=== PATIENT | female | born 1970 | race Caucasian/White ===

== ENCOUNTER → 2018-08-17 11:35 | Outpatient (CLI) | payer SELFPAY ==
[2018-08-17 12:05] LABS: Hematocrit 41.5 % (36-46); Hemoglobin 13.7 g/dL (12.0-16.0); Mean Corpuscular Hemoglobin 31.5 PG (26-34); Mean Corpuscular Volume 95.5 fL (80-100); Platelet Count 309 X10^3/uL (150-400); Red Blood Cell Count 4.35 X10^6/uL (4.0-5.2); Red Cell Distribution Width 12.8 % (11.6-14.8); White Blood Cell Count 4.9 X10^3/uL (4.5-11.0)
[2018-08-17 12:13] LABS: Neutrophils Absolute Manual 2842 /uL (3000-5900); RBC Morphology Normal Morphology; Total Cells Counted 100
[2018-08-17 12:16] LABS: Alanine Aminotransferase 35 IU/L (9-52); Albumin 4.4 g/dL (3.5-5.0); Albumin Globulin Ratio 1.6 (1.0-2.8); Alkaline Phosphatase 53 U/L (38-126); Aspartate Aminotransferase 43 IU/L (14-36); BUN Creatinine Ratio 21.7 (6-22); Bilirubin Total 0.5 mg/dL (0.2-1.3); Blood Urea Nitrogen 13 mg/dL (7-17); Calcium 9.4 mg/dL (8.4-10.2); Carbon Dioxide 30 mmol/L (22-32); Chloride 97 mmol/L (98-107); Cholesterol 274 mg/dL (140-199); Estimated Glomerular Filt Rate > 60.0 mL/min (>60); Globulin 2.8 g/dL (1.7-4.1); Glucose 89 mg/dL (70-100); HEMOLYSIS < 15 (0-50); Potassium 4.1 mmol/L (3.4-5.1); Sodium 136 mmol/L (137-145); Total Protein 7.2 g/dL (6.3-8.2); Triglycerides 65 mg/dL (35-150)
[2018-08-17 12:27] LABS: HDL Cholesterol 174 mg/dL (40-60); LDL Cholesterol Calculated 87 mg/dL (<100)
== END ==
PROVIDERS: PCP Family Medicine; Visit Provider Family Medicine
DX: F32.9 Major depressive disorder, single episode, unspecified (principal); F50.2 Bulimia nervosa
CPT/HCPCS: 36415; 80053; 80061; 85025

== ENCOUNTER 2022-06-07 02:34 | Emergency (ER) | payer OTHER, MEDICAID, SELFPAY ==
[2022-06-07 02:43] VITALS: BP 126/67; PULSE 90; RESP 18; TEMP 36.8; O2SAT 98
--- NOTE | 2022-06-07 03:11 | ED_ITS ---
HPI - Nausea/Vomiting/Diarrhea General Chief complaint: Nausea/Vomiting/Diarrhea Stated complaint: think she has the flu or having a heart attack Time Seen by Provider: 06/07/22 02:50 Source: patient Mode of arrival: Ambulatory History of Present Illness HPI Narrative: Patient is a 51-year-old female with no past medical history presenting today with bright of complaints. Her boyfriend was sick yesterday she was feeling okay she went to sleep and woke up and felt all over body pain possibly a fever but she is afebrile now. She maybe had some heart palpitations as well but no real chest pain. She certainly denies any radiation. No provocation or palliation. She is not having any shortness of breath. She has chronic ongoing back pain for which she has lidocaine patches for this is not seem to be any worse or different today. No numbness tingling or weakness. She was just generally concerned. Related Data Home Medications Medication Instructions Recorded Confirmed multivitamin (Multiple Vitamins 1 tab PO QDAY ##0 11/10/16 03/28/18 tablet) [OMEGA-3/6/9 FISH OIL] PO QDAY ##0 06/15/17 03/28/18 Previous Rx's Medication Instructions Recorded venlafaxine 75 mg capsule,extended 75 mg PO BID #60 caps 05/16/18 release 24 hr Allergies Allergy/AdvReac Type Severity Reaction Status Date / Time citalopram [From CELEXA] AdvReac Intermediate VERTIGO, Verified 03/28/18 16:32 DIZZY SPELLS, NAUSEA, FEEL LIKE FAINTING Review of Systems Review of Systems Narrative: GENERAL: Denies chills, fatigue, malaise, fever, sweats, travel HEENT: Denies sinus pain, ear pain, sore throat, difficulty swallowing, neck pain RESPIRATORY: Denies dyspnea, cough, wheezing, hemoptysis, sputum. CARDIOVASCULAR: See HPI GASTROINTESTINAL: Denies nausea, vomiting, abdominal pain, diarrhea, constipation, melena. : Denies dysuria, frequency, incontinence, hematuria, urinary retention, flank pain. MUSCULOSKELETAL: Denies weakness, joint pain, or bony pain SKIN: No rash, no erythema, no pruritus NEUROLOGIC: Denies weakness, dizziness, headache, numbness, change in speech, c onfusion PSYCHIATRIC: No concerning psychosocial issues. 12 point review of systems is negative except for those stated above and HPI Patient History Medical History (Updated 06/07/22 @ 04:53 by Debra León DO) Anemia Bulimia Chickenpox Depression Foot pain Fractures Generalized headaches Hyperlipemia Migraines Sinusitis Surgical History No history of previous surgery Family History (Updated 11/10/16 @ 00:00 by Conversion Provider) Brother Age: 52 Hypertension Father Age: 82 Type 2 diabetes mellitus without complications Heart disease Hypertension Mother Age: 80 Type 2 diabetes mellitus without complications Social History Smoking Status: Current some day smoker Tobacco: How many years used: 15 alcohol intake: current (daily) Smoking Status: Current some day smoker alcohol intake frequency: 0-2 drinks per day Alcohol type: beer and hard liquor Substance Use Type: does not use Exam Initial Vital Signs Initial Vital Signs: Vital Signs Temperature 98.2 F 06/07/22 02:43 Pulse Rate 90 06/07/22 02:43 Respiratory Rate 18 06/07/22 02:43 Blood Pressure 126/67 06/07/22 02:43 Pulse Oximetry 98 06/07/22 02:43 Oxygen Delivery Method 06/07/22 02:43 GENERAL: Alert 51-year-old female and in no acute distress. HEENT: Head atraumatic,EOMI, pupils reactive, face symmetric, moist mucous membranes CARDIOVASCULAR: Regular rate and rhythm without murmurs, rubs or gallops. RESPIRATORY: Breath sounds equal bilaterally, no wheezes rales or rhonchi. ABDOMEN: Soft, nontender. Normoactive bowel sounds all 4 quadrants. No guarding or rebound. EXTREMITIES: Normal range of motion, no clubbing or edema. Neurovascularly intact NEUROLOGICAL: Alert and oriented x4.Normal gait and speech. SKIN: Warm, dry, no laceration, no petechiae, no rashes or lesions. Course Orders Ordered: ED Orders 06/07/22 EKG-12 Lead Routine 06/07/22 02:52 Respiratory Panel (Film Array) Stat 06/07/22 04:03 Complete Blood Count AUTO DIFF Stat Comprehensive Metabolic Panel Stat Lipase Stat Troponin & CK Cardiac Panel Stat Discontinued Medications Potassium Chloride (Potassium Chloride 20 Meq Tab) 40 meq PO NOW ONE Stop: 06/07/22 04:44 Last Admin: 06/07/22 05:06 Dose: 40 meq Documented By: LAUREN Vital Signs Vital signs: Vital Signs - 8 hr 06/07/22 02:43 06/07/22 05:06 Temperature 98.2 F Pulse Rate 90 86 Respiratory Rate 18 14 Blood Pressure 126/67 128/77 Pulse Oximetry 98 98 Oxygen Delivery Method Room Air Room Air MDM - Nausea/Vomiting/Diarrhea Lab Data Result diagrams: 06/07/22 04:03 06/07/22 04:03 Labs: Lab Results 06/07/22 06/07/22 06/07/22 Range/Units 02:52 04:03 04:03 WBC 8.6 (4.5-11.0) X10^3/uL RBC 4.15 (4.0-5.2) X10^6/uL Hgb 13.1 (12.0-16.0) g/dL Hct 38.3 (36-46) % MCV 92.3 (80-100) fL MCH 31.5 (26-34) PG MCHC 34.1 (30-36) % RDW 13.3 (11.6-14.8) % Plt Count 246 (150-400) X10^3/uL Neut % (Auto) 76.4 H (50-75) % Lymph % (Auto) 16.3 L (25-40) % Towner % (Auto) 5.9 (3-14) % Eos % (Auto) 0.3 L (2-4) % Baso % (Auto) 1.1 (0-2) % Neut # (Auto) 6600 (2237-6595) /uL Lymph # (Auto) 1400 (2693-2766) /uL Towner # (Auto) 500 (0-900) /uL Eos # (Auto) 0 (0-450) /uL Baso # (Auto) 100 (0-100) /uL Sodium 138 (137-145) mmol/L Potassium 3.0 L (3.4-5.1) mmol/L Chloride 101 (98-107) mmol/L Carbon Dioxide 21 L (22-32) mmol/L BUN 20 H (7-17) mg/dL Creatinine 0.71 (0.52-1.04) mg/dL Estimated GFR > 60 (>60) mL/min BUN/Creatinine Ratio 28.2 H (6-22) Glucose 47 L (70-100) mg/dL Calcium 8.5 (8.4-10.2) mg/dL Total Bilirubin 0.3 (0.2-1.3) mg/dL AST 36 (14-36) IU/L ALT 21 (<35) IU/L Alkaline Phosphatase 59 (38-126) U/L Total Creatine Kinase 93 (30-135) U/L CK-MB (CK-2) TNP CK-MB (CK-2) Rel Index TNP Troponin I < 0.012 (0.01-0.034) ng/mL Total Protein 7.1 (6.3-8.2) g/dL Albumin 4.2 (3.5-5.0) g/dL Globulin 2.9 (1.7-4.1) g/dL Albumin/Globulin Ratio 1.4 (1.0-2.8) Lipase 103 (23-300) U/L Chlamy pneumoniae PCR Not detected (Not Detect) Adenovirus (PCR) Not detected (Not Detect) B. pertussis DNA (PCR) Not detected (Not Detecte) B.parapertussis DNA PCR Not detected (Not Detecte) Coronavirus OC43 (PCR) Not detected (Not Detect) Coronavirus HKU1 (PCR) Not detected (Not Detect) Coronavirus 229E (PCR) Not detected (Not Detect) SARS-CoV-2 (PCR) Not detected (Not Detecte) Coronavirus NL63 (PCR) Not detected (Not Detect) Human Metapneumovir PCR Not detected (Not Detect) Influenza Type A (PCR) Not detected (Not Detect) Influenza Type B (PCR) Not detected (Not Detect) M. pneumoniae (PCR) Not detected (Not Detect) Parainfluenza 1 (PCR) Not detected (Not Detect) Parainfluenza 2 (PCR) Not detected (Not Detect) Parainfluenza 3 (PCR) Not detected (Not Detect) Parainfluenza 4 (PCR) Not detected (Not Detect) RSV (PCR) Not detected (Not Detect) Entero/Rhino (PCR) Not detected (Not Detect) ECG Data Interpretation: Sinus rhythm rate 80 p.r. interval 146 QRS 100 QTC 454 low voltage noted in lead 2 Q-wave noted in 3 in AVF no significant ST changes MDM Narrative Medical decision making narrative: Patient is found to have mild hypokalemia. Otherwise blood work is overall reassuring. She denies any nausea vomiting or diarrhea. Sounds as though she is having some ongoing going possible palpitations but it does not place sounds like chest discomfort. There is certainly no radiation or other cardiac like equivalents. She overall appears well. She thought that she might be sick but influenza COVID RSV are negative. She does admit to drinking more alcohol than she had previously. At this time I see no need for any further workup. She has not had any chest pain while in the ED Discharge Plan Departure Patient Disposition: Home Clinical Impression: Hypokalemia Instructions: DI for Hypokalemia Activity Restrictions/Additional Instructions: *You have been diagnosed with low potassium *What to do: At this time her blood work is overall reassuring no cause for year or *Continue to take medications as directed *Follow up with your primary care provider in 2-3 days or call [phone] *Return to ER if you should have increasing fever chest pain shortness of breath or any new, worsening or concerning symptoms Prescriptions: No Action multivitamin [Multiple Vitamins] 1 EACH tablet 1 tab PO QDAY Qty: 0 [OMEGA-3/6/9 FISH OIL] PO QDAY Qty: 0 venlafaxine 75 mg capsule,extended release 24hr 75 mg PO BID Qty: 60 2RF Referrals: Aishwarya Valdovinos DO [Primary Care Provider] - Visit Report Forms: Patient Portal/API
[2022-06-07 04:11] LABS: Add Manual Diff / Slide Review NO; Basophils Absolute Auto 100 /uL (0-100); Basophils Percent Auto 1.1 % (0-2); Eosinophils Absolute Auto 0 /uL (0-450); Eosinophils Percent Auto 0.3 % (2-4); Hematocrit 38.3 % (36-46); Hemoglobin 13.1 g/dL (12.0-16.0); Lymphocytes Absolute Auto 1400 /uL (1100-4500); Lymphocytes Percent Auto 16.3 % (25-40); Mean Corpuscular HGB Conc 34.1 % (30-36); Mean Corpuscular Hemoglobin 31.5 PG (26-34); Mean Corpuscular Volume 92.3 fL (80-100); Monocytes Absolute Auto 500 /uL (0-900); Monocytes Percent Auto 5.9 % (3-14); Neutrophils Absolute Auto 6600 /uL (1500-7000); Neutrophils Percent Auto 76.4 % (50-75); Platelet Count 246 X10^3/uL (150-400); Red Blood Cell Count 4.15 X10^6/uL (4.0-5.2); Red Cell Distribution Width 13.3 % (11.6-14.8); White Blood Cell Count 8.6 X10^3/uL (4.5-11.0)
[2022-06-07 04:21] LABS: Alanine Aminotransferase 21 IU/L (<35); Albumin 4.2 g/dL (3.5-5.0); Albumin Globulin Ratio 1.4 (1.0-2.8); Alkaline Phosphatase 59 U/L (38-126); Aspartate Aminotransferase 36 IU/L (14-36); BUN Creatinine Ratio 28.2 (6-22); Bilirubin Total 0.3 mg/dL (0.2-1.3); Blood Urea Nitrogen 20 mg/dL (7-17); Calcium 8.5 mg/dL (8.4-10.2); Carbon Dioxide 21 mmol/L (22-32); Chloride 101 mmol/L (98-107); Creatine Kinase 93 U/L (30-135); Estimated Glomerular Filt Rate > 60 mL/min (>60); Globulin 2.9 g/dL (1.7-4.1); Glucose 47 mg/dL (70-100); HEMOLYSIS < 15 (0-50); Lipase 103 U/L (23-300); Sodium 138 mmol/L (137-145); Total Protein 7.1 g/dL (6.3-8.2)
[2022-06-07 04:30] LABS: Adenovirus Not Detected (Not Detect); B. parapertussis Not Detected (Not Detecte); Coronavirus 229E Not Detected (Not Detect); Coronavirus HKU1 Not Detected (Not Detect); Coronavirus NL 63 Not Detected (Not Detect); Coronavirus OC43 Not Detected (Not Detect); Human Metapneumovirus Not Detected (Not Detect); Human Rhinovirus/Enterovirus Not Detected (Not Detect); Influenza A Not Detected (Not Detect); Influenza B Not Detected (Not Detect); Parainfluenza Virus 1 Not Detected (Not Detect); Parainfluenza Virus 2 Not Detected (Not Detect); Parainfluenza Virus 3 Not Detected (Not Detect); Parainfluenza Virus 4 Not Detected (Not Detect); Respiratory Syncytial Virus Not Detected (Not Detect); SARS- CoV-2 Not Detected (Not Detecte)
[2022-06-07 04:31] LABS: Bordetella pertussis Not Detected (Not Detecte); Chlamydophila pneumoniae Not Detected (Not Detect); Mycoplasma pneumoniae Not Detected (Not Detect)
[2022-06-07 04:32] LABS: Troponin I < 0.012 ng/mL (0.01-0.034)
[2022-06-07] MEDS: ONDANSETRON 4 MG/2 ML INJ (05:02)
[2022-06-07 05:06] VITALS: BP 128/77; PULSE 86; RESP 14; O2SAT 98
[2022-06-07] MEDS: POTASSIUM CHLORIDE 20 MEQ TAB 40 MEQ PO (05:06)
== END 2022-06-07 05:08 | disposition home or self-care (01) ==
PROVIDERS: Emergency Provider Emergency Medicine; PCP Family Medicine
DX: E87.6 Hypokalemia (principal); R00.2 Palpitations; Z20.822 Contact with and (suspected) exposure to COVID-19
CPT/HCPCS: 36415; 80053; 82550; 83690; 84484; 85025; 87633; 93005; 93010; 99284; J2405